=== PATIENT | male | born 1975 | race Hispanic/Latino ===

== ENCOUNTER 2019-02-02 21:50 | Emergency (ER) | payer SELFPAY ==
[~2019-02-02] VITALS: Ht 177.8 cm; Wt 99.8 kg
--- NOTE | 2019-02-02 23:11 | Diagnostic Imaging Report ---
RADIOGRAPH(S) OF THE ABDOMEN AND PELVIS, 2 view(s) HISTORY: Abdominal pain, left side COMPARISON: None available. FINDINGS: No specific evidence of obstruction or ileus. No definite urinary tract calcification. The bones are partially obscured by stool and overlying bowel gas. Heterotopic ossification about the superior aspect of the pubic symphysis, likely secondary to remote trauma. IMPRESSION: 1. Nonobstructive bowel gas pattern. 2. No acute radiographic abnormality. Signed by: Dr. Jama Plasencia D.O., M.M.M. on 02/02/2019 11:07 PM
[2019-02-02] MEDS ORDERED: KETOROLAC TROMETHAMINE 60 MG/2 ML VIAL ONE (23:22)
--- NOTE | 2019-02-02 23:44 | NUR ---
TORADOL 60MG GIVEN IM TO RIGHT GM. PT TOLORATED WELL.
[2019-02-02] MEDS ORDERED: KETOROLAC TROMETHAMINE 60 MG/2 ML VIAL IM ONE (23:45)
[2019-02-03 00:41] VITALS: BP 148/78
== END 2019-02-03 00:15 | disposition home or self-care (01) ==
LOC: FSED 21:50
DX: R10.32 Left lower quadrant pain (principal); R31.29 Other microscopic hematuria
CPT/HCPCS: 74018; 81003; 96372; 99283; J1885